=== PATIENT | female | born 1995 | race African-American/Black ===

== ENCOUNTER 2020-03-07 13:52 | Inpatient (IN) | payer OTHER ==
[2020-03-07] MEDS ORDERED: morphine CARPU-JECT 2 MG/1 ML DISP.SYRIN IVPUSH ONE (14:32)
[2020-03-07] MEDS ORDERED: MORPHINE SULFATE 2 MG/ML VIAL ONE ×2 (14:45→17:31)
[2020-03-07] MEDS ORDERED: morphine SULFATE 4 MG/ML VIAL ONE ×2 (14:45→17:31)
[2020-03-07 15:16] LABS: HEMATOCRIT 27.7 % (32.4-45.2); HEMOGLOBIN 9.5 GM/dL (10.7-15.3); MCH 38.6 pg (25.7-33.7); MCHC 34.3 g/dl (32.0-36.0); MEAN CELL VOLUME 112.7 fl (80-96); MEAN PLT VOLUME 9.8 fl (7.5-11.1); PLATELET COUNT 298 K/MM3 (134-434); RBC 2.45 M/mm3 (3.60-5.2); RDW 15.3 % (11.6-15.6); WHITE BLOOD COUNT 9.3 K/mm3 (4.0-10.0)
[2020-03-07 15:27] LABS: RETICULOCYTES 6.36 % (0.5-1.5)
[2020-03-07] MEDS ORDERED: LACTATED RINGERS SOLUTION 1,000 ML/1,000 ML INFUS.BAG IV STA (15:34)
[2020-03-07 15:42] LABS: CHLORIDE 110 mmol/L (98-107); POTASSIUM 4.3 mmol/L (3.5-5.1); SODIUM 138 mmol/L (136-145)
[2020-03-07 15:45] LABS: ALBUMIN 4.1 g/dl (3.4-5.0); ANION GAP 6 MMOL/L (8-16); BLOOD UREA NITROGEN 4.8 mg/dL (7-18); CO2 22 mmol/L (21-32); GLUCOSE,RANDOM 96 mg/dL (74-106)
[2020-03-07 15:47] LABS: CREATININE 0.6 mg/dL (0.55-1.3); SGOT/AST 61 U/L (15-37); SGPT/ALT 82 U/L (13-61)
[2020-03-07 15:50] LABS: BILIRUBIN,TOTAL 1.7 mg/dL (0.2-1); TOT PROT 7.3 g/dl (6.4-8.2)
[2020-03-07 15:51] LABS: ALK PHOS 121 U/L (45-117)
[2020-03-07] MEDS ORDERED: ACETAMINOPHEN 1000 MG/100 ML VIAL (NON FORMULARY) IVPB ONE (15:58)
[2020-03-07] MEDS ORDERED: ACETAMINOPHEN INJECTION 100 ML IVPB ONE (15:59)
[2020-03-07 16:39] LABS: ERYTHROCYTE SEDIMENTATION RATE 4 mm/hr (0-20)
[2020-03-07] MEDS ORDERED: morphine CARPU-JECT 4 MG/1 ML DISP.SYRIN IVPUSH ONE (17:28)
[2020-03-07] MEDS ORDERED: FOLIC ACID 1 MG TABLET (FP) PO ONE (18:34)
[2020-03-07] MEDS ORDERED: LACTATED RINGERS SOLUTION 1,000 ML/1,000 ML INFUS.BAG IV SCH (18:45)
[2020-03-07] MEDS ORDERED: CYANOCOBALAMIN (VITAMIN B-12) 100 MCG TABLET PO SCH (18:45)
[2020-03-07] MEDS ORDERED: FOLIC ACID 1 MG TABLET (FP) ONE (19:32)
[2020-03-07 20:53] VITALS: BMI 18.8
[2020-03-07] MEDS ORDERED: MORPHINE SULFATE 2 MG/ML VIAL IVPUSH ONE (21:15)
[2020-03-07] MEDS: LACTATED RINGERS SOLUTION 1,000 ML/1,000 ML INFUS.BAG IV SCH (21:52)
[2020-03-07] MEDS ORDERED: risperiDONE 1 MG TABLET PO SCH (22:00)
[2020-03-07] MEDS ORDERED: risperiDONE 2 MG TABLET PO SCH (22:00)
[2020-03-07] MEDS: HYDROXYUREA 500 MG CAPSULE PO SCH (23:01)
[2020-03-08] MEDS: morphine SULFATE 4 MG/ML VIAL IVPUSH PRN ×4 (00:07→23:22)
[2020-03-08] MEDS ORDERED: ACETAMINOPHEN 1000 MG/100 ML VIAL (NON FORMULARY) IVPB ONE (03:33)
[2020-03-08] MEDS: LACTATED RINGERS SOLUTION 1,000 ML/1,000 ML INFUS.BAG IV SCH ×3 (03:57→22:36)
[2020-03-08] MEDS ORDERED: PT OWN MED DRAWER 7, Y5N ONE (08:56)
[2020-03-08] MEDS ORDERED: FLU VACCINE (FLULAVAL) PF 60 MCG/0.5 ML SYRINGE 2020-2021 IM ONE (09:00)
[2020-03-08] MEDS: METHADONE HCL 10 MG TABLET PO SCH ×2 (10:08→21:17)
[2020-03-08] MEDS: CYANOCOBALAMIN 1,000 MCG TABLET (FP) PO SCH (10:09)
[2020-03-08] MEDS: FOLIC ACID 1 MG TABLET (FP) PO SCH (10:09)
[2020-03-08] MEDS: ENOXAPARIN NA (PORCINE) 40 MG/0.4 ML DISP.SYRIN SQ SCH (10:12)
[2020-03-08] MEDS: HYDROXYUREA 500 MG CAPSULE PO SCH ×3 (10:39→21:18)
[2020-03-08] MEDS: NICOTINE 7 MG/24 HOURS TOPICAL PATCH TD SCH (10:39)
[2020-03-08] MEDS: oxyCODONE HCL 5 MG TABLET PO PRN ×2 (12:16→20:05)
[2020-03-08] MEDS ORDERED: PATIENT'S OWN MEDICATION (NON-FORMULARY) (Oxycodone Hcl [Oxycodone Hcl] 10 MG Tablet) PO SCH (14:00)
[2020-03-09] MEDS: HYDROXYUREA 500 MG CAPSULE PO SCH ×3 (05:28→22:45)
[2020-03-09] MEDS: oxyCODONE HCL 5 MG TABLET PO PRN ×3 (05:40→20:13)
[2020-03-09 09:40] LABS: BASO % 1.2 % (0-2.0); EOS % 4.5 % (0-4.5); HEMATOCRIT 25.5 % (32.4-45.2); HEMOGLOBIN 8.8 GM/dL (10.7-15.3); LYMPH % 17.7 % (8-40); MCH 39.3 pg (25.7-33.7); MCHC 34.7 g/dl (32.0-36.0); MEAN CELL VOLUME 113.5 fl (80-96); MEAN PLT VOLUME 10.2 fl (7.5-11.1); MONO % 17.9 % (3.8-10.2); NEUT % 58.7 % (42.8-82.8); PLATELET COUNT 274 K/MM3 (134-434); RBC 2.25 M/mm3 (3.60-5.2); RDW 16.1 % (11.6-15.6); WHITE BLOOD COUNT 13.1 K/mm3 (4.0-10.0)
[2020-03-09] MEDS ORDERED: DEXTROSE 5%-WATER - 50 ML IVPB ONE (09:48)
[2020-03-09] MEDS ORDERED: cefTRIAXone SODIUM 1 GM VIAL ONE (09:48)
[2020-03-09] MEDS: ENOXAPARIN NA (PORCINE) 40 MG/0.4 ML DISP.SYRIN SQ SCH (09:53)
[2020-03-09] MEDS: CYANOCOBALAMIN 1,000 MCG TABLET (FP) PO SCH (09:53)
[2020-03-09 09:54] LABS: POTASSIUM 3.8 mmol/L (3.5-5.1)
[2020-03-09] MEDS: morphine SULFATE 4 MG/ML VIAL IVPUSH PRN ×3 (09:54→22:45)
[2020-03-09 09:56] LABS: ALBUMIN 3.5 g/dl (3.4-5.0); BLOOD UREA NITROGEN 3.9 mg/dL (7-18); CALCIUM 8.8 mg/dL (8.5-10.1)
[2020-03-09] MEDS: FOLIC ACID 1 MG TABLET (FP) PO SCH (09:57)
[2020-03-09] MEDS: METHADONE HCL 10 MG TABLET PO SCH ×2 (09:58→22:44)
[2020-03-09] MEDS: NICOTINE 7 MG/24 HOURS TOPICAL PATCH TD SCH (09:59)
[2020-03-09 10:00] LABS: CREATININE 0.5 mg/dL (0.55-1.3)
[2020-03-09] MEDS: CEFTRIAXONE 1 GM in DEXTROSE 5%-WATER - 50 ML IVPB SCH (10:00)
[2020-03-09 10:01] LABS: TOT PROT 6.5 g/dl (6.4-8.2)
[2020-03-09] MEDS: AZITHROMYCIN IVPB 500 MG/250 ML BAG IVPB SCH (10:02)
[2020-03-09 10:04] LABS: MAGNESIUM 1.8 mg/dL (1.8-2.4)
[2020-03-09 11:09] LABS: ANISOCYTOSIS 1+; MACROCYTOSIS 2+; PLATELET ESTIMATE NORMAL; SICKELED CELLS 2+; TARGET CELLS 2+
[2020-03-09] MEDS: LACTATED RINGERS SOLUTION 1,000 ML/1,000 ML INFUS.BAG IV SCH ×2 (14:11→22:51)
[2020-03-10] MEDS: oxyCODONE HCL 5 MG TABLET PO PRN ×2 (02:13→08:21)
[2020-03-10] MEDS: HYDROXYUREA 500 MG CAPSULE PO SCH ×2 (05:34→14:56)
[2020-03-10] MEDS: morphine SULFATE 4 MG/ML VIAL IVPUSH PRN ×2 (05:34→12:41)
[2020-03-10] MEDS: LACTATED RINGERS SOLUTION 1,000 ML/1,000 ML INFUS.BAG IV SCH (07:03)
[2020-03-10 07:59] LABS: POTASSIUM 3.8 mmol/L (3.5-5.1)
[2020-03-10 08:08] LABS: ALBUMIN 3.1 g/dl (3.4-5.0); BLOOD UREA NITROGEN 3.3 mg/dL (7-18); CALCIUM 8.3 mg/dL (8.5-10.1)
[2020-03-10 08:09] LABS: MAGNESIUM 1.9 mg/dL (1.8-2.4)
[2020-03-10 08:10] LABS: BILIRUBIN,TOTAL 1.6 mg/dL (0.2-1)
[2020-03-10 08:12] LABS: CREATININE 0.5 mg/dL (0.55-1.3)
[2020-03-10 08:14] LABS: EOS % 5.4 % (0-4.5); HEMATOCRIT 22.3 % (32.4-45.2); HEMOGLOBIN 7.6 GM/dL (10.7-15.3); LYMPH % 20.7 % (8-40); MCH 38.6 pg (25.7-33.7); MEAN CELL VOLUME 113.6 fl (80-96); MEAN PLT VOLUME 10.5 fl (7.5-11.1); MONO % 17.4 % (3.8-10.2); NEUT % 55.5 % (42.8-82.8); PLATELET COUNT 260 K/MM3 (134-434); RBC 1.96 M/mm3 (3.60-5.2); RDW 15.8 % (11.6-15.6); WHITE BLOOD COUNT 11.3 K/mm3 (4.0-10.0)
[2020-03-10] MEDS ORDERED: cefTRIAXone SODIUM 1 GM VIAL ONE (08:58)
[2020-03-10] MEDS ORDERED: DEXTROSE 5%-WATER - 50 ML IVPB ONE (08:59)
[2020-03-10] MEDS: CEFTRIAXONE 1 GM in DEXTROSE 5%-WATER - 50 ML IVPB SCH (09:00)
[2020-03-10] MEDS: CYANOCOBALAMIN 1,000 MCG TABLET (FP) PO SCH (09:03)
[2020-03-10] MEDS: METHADONE HCL 10 MG TABLET PO SCH (09:03)
[2020-03-10] MEDS: FOLIC ACID 1 MG TABLET (FP) PO SCH (09:03)
[2020-03-10] MEDS: ENOXAPARIN NA (PORCINE) 40 MG/0.4 ML DISP.SYRIN SQ SCH (09:04)
[2020-03-10] MEDS: NICOTINE 7 MG/24 HOURS TOPICAL PATCH TD SCH (09:04)
[2020-03-10] MEDS: AZITHROMYCIN IVPB 500 MG/250 ML BAG IVPB SCH (09:05)
[2020-03-10] MEDS ORDERED: POLYETHYLENE GLYCOL 3350 119 GM BTL PO SCH (11:45)
[2020-03-10 14:23] VITALS: BP 126/80; PULSE 88; TEMP 98
[2020-03-10] MEDS ORDERED: DOCUSATE SODIUM 100 MG CAPSULE (FP) PO SCH (22:00)
[2020-03-10] MEDS ORDERED: SENNOSIDES 8.6MG TABLET (FP) PO SCH (22:00)
== END 2020-03-10 15:24 | disposition home or self-care (01) | DRG 662 ==
LOC: JER 13:52 → JERBED 19:06 → J7W 20:16
PROVIDERS: ATTEND Nurse Practitioner Acute Care
DX: D57.01 Hb-SS disease with acute chest syndrome (principal); J18.9 Pneumonia, unspecified organism; R10.9 Unspecified abdominal pain; D72.89 Other specified disorders of white blood cells; K59.00 Constipation, unspecified; F11.20 Opioid dependence, uncomplicated; F05 Delirium due to known physiological condition; R07.89 Other chest pain; M54.9 Dorsalgia, unspecified; F39 Unspecified mood [affective] disorder; R05 Cough; Z03.818 Encounter for observation for suspected exposure to other biological agents ruled out; Z90.49 Acquired absence of other specified parts of digestive tract; D72.829 Elevated white blood cell count, unspecified
CPT/HCPCS: 36415; 71046-TC-FY; 71250-TC; 76705-TC; 80053; 80074; 83735; 84484; 85025; 85027; 85045; 85651; 86140; 93005; 93010; 94010; 99285-25; C9803; G0008; J0131; J2794; J8999; Q2036; U0003

== ENCOUNTER 2023-10-08 03:10 | Emergency (ER) | payer OTHER ==
[2023-10-08 03:26] VITALS: BMI 17.4
[2023-10-08] MEDS ORDERED: MORPHINE SULFATE 2 MG/ML SYRINGE ONE ×2 (04:30→07:49)
[2023-10-08] MEDS ORDERED: ONDANSETRON 4 MG/2 ML VIAL ONE (04:32)
[2023-10-08] MEDS ORDERED: ACETAMINOPHEN INJECTION 100 ML IVPB ONE (04:32)
[2023-10-08] MEDS: ACETAMINOPHEN 1000 MG/100 ML BAG IVPB ONE (04:41)
[2023-10-08] MEDS: morphine CARPU-JECT 4 MG/1 ML DISP.SYRIN IVPUSH ONE ×3 (04:41→08:00)
[2023-10-08] MEDS: ONDANSETRON 4 MG/2 ML VIAL IVPUSH ONE (04:41)
[2023-10-08 04:54] LABS: BASO % 1.2 % (0-2.0); EOS % 1.9 % (0-4.5); HEMATOCRIT 25.6 % (32.4-45.2); HEMOGLOBIN 8.9 GM/dL (10.7-15.3); LYMPH % 26.9 % (8-40); MCH 39.3 pg (25.7-33.7); MCHC 34.7 g/dl (32.0-36.0); MEAN CELL VOLUME 113.5 fl (80-96); MEAN PLT VOLUME 9.2 fl (7.5-11.1); PLATELET COUNT 248 10^3/uL (134-434); RBC 2.26 M/mm3 (3.60-5.2); RDW 16.6 % (11.6-15.6); RETICULOCYTES 6.86 % (0.5-1.5); WHITE BLOOD COUNT 9.5 K/mm3 (4.0-10.0)
[2023-10-08 05:28] LABS: POTASSIUM 3.8 mmol/L (3.5-5.1)
[2023-10-08 05:30] LABS: ALBUMIN 4.3 g/dl (3.4-5.0); BLOOD UREA NITROGEN 5.8 mg/dL (7-18); CALCIUM 8.6 mg/dL (8.5-10.1)
[2023-10-08 05:33] LABS: CREATININE 0.7 mg/dL (0.55-1.3)
[2023-10-08 05:35] LABS: BILIRUBIN,TOTAL 1.4 mg/dL (0.2-1); TOT PROT 7.2 g/dl (6.4-8.2)
[2023-10-08] MEDS ORDERED: morphine SULFATE 4 MG/ML VIAL ONE ×2 (06:04→07:49)
[2023-10-08 06:21] LABS: ANISOCYTOSIS 2+; MACROCYTOSIS 2+; OVALOCYTE 1+; TARGET CELLS 2+
[2023-10-08] MEDS: SODIUM CHLORIDE 0.9% 500 ML INFUS.BAG IV ONE (08:00)
[2023-10-08 08:01] VITALS: RESP 18
[2023-10-08 09:38] LABS: URINE APPEARANCE CLEAR; URINE BILIRUBIN NEGATIVE (NEGATIVE); URINE COLOR YELLOW; URINE GLUCOSE (UA) NEGATIVE (NEGATIVE); URINE KETONE NEGATIVE (NEGATIVE); URINE LEUK ESTERASE NEGATIVE (NEGATIVE); URINE NITRITE NEGATIVE (NEGATIVE); URINE PROTEIN NEGATIVE (NEGATIVE)
[2023-10-08 10:36] VITALS: BP 103/67; PULSE 85; TEMP 98.4
== END 2023-10-08 10:39 | disposition home or self-care (01) ==
LOC: JER 03:10
PROC: 3E033NZ Introduction of Analgesics, Hypnotics, Sedatives into Peripheral Vein, Percutaneous Approach (ICD-10-PCS; principal; 2023-10-08)
PROC: 3E033NZ Introduction of Analgesics, Hypnotics, Sedatives into Peripheral Vein, Percutaneous Approach (ICD-10-PCS; 2023-10-08)
PROC: 3E033GC Introduction of Other Therapeutic Substance into Peripheral Vein, Percutaneous Approach (ICD-10-PCS; 2023-10-08)
PROC: 3E033NZ Introduction of Analgesics, Hypnotics, Sedatives into Peripheral Vein, Percutaneous Approach (ICD-10-PCS; 2023-10-08)
PROC: 3E033NZ Introduction of Analgesics, Hypnotics, Sedatives into Peripheral Vein, Percutaneous Approach (ICD-10-PCS; 2023-10-08)
DX: D57.00 Hb-SS disease with crisis, unspecified (principal); R07.89 Other chest pain; R11.0 Nausea; R19.7 Diarrhea, unspecified; M54.9 Dorsalgia, unspecified; M79.604 Pain in right leg; M79.605 Pain in left leg
CPT/HCPCS: 36415; 71046-TC-FY; 80053; 81003; 83615; 84703; 85025; 85045; 86850; 86900; 86901; 87086; 93005; 93010; 99285-25; J0131

== ENCOUNTER 2023-12-12 08:56 | Emergency (ER) | payer OTHER ==
[2023-12-12 09:46] VITALS: BP 103/62; PULSE 88; RESP 18; TEMP 98.4; BMI 17.4
[2023-12-12 10:05] LABS: HEMATOCRIT 23.2 % (32.4-45.2); HEMOGLOBIN 8.3 GM/dL (10.7-15.3); MCH 39.4 pg (25.7-33.7); MCHC 35.5 g/dl (32.0-36.0); MEAN CELL VOLUME 110.9 fl (80-96); PLATELET COUNT 251 10^3/uL (134-434); RBC 2.09 M/mm3 (3.60-5.2)
[2023-12-12 10:11] LABS: INR 1.02 (0.83-1.09); PROTHROMBIN TIME (PATIENT) 11.7 SEC (9.7-13.0)
[2023-12-12] MEDS ORDERED: oxyCODONE HCL 10 MG SUSTAINED ACTING TABLET ONE (10:13)
[2023-12-12 10:14] LABS: ACTIVATED PTT 30.3 SECONDS (25.2-36.5)
[2023-12-12] MEDS ORDERED: ONDANSETRON 4 MG/2 ML VIAL ONE (10:14)
[2023-12-12] MEDS ORDERED: methaDONE HCL 10 MG TABLET ONE (10:14)
[2023-12-12] MEDS: oxyCODONE HCL 5 MG TABLET PO ONE (10:26)
[2023-12-12] MEDS: methaDONE HCL 10 MG TABLET PO ONE (10:26)
[2023-12-12] MEDS: LACTATED RINGERS SOLUTION 1000 ML INFUS.BAG IV ONE (10:27)
[2023-12-12] MEDS: ONDANSETRON 4 MG/2 ML VIAL IVPUSH ONE (10:28)
[2023-12-12 10:29] LABS: ALBUMIN 4.1 g/dl (3.4-5.0); BLOOD UREA NITROGEN 7.5 mg/dL (7-18); CALCIUM 9.2 mg/dL (8.5-10.1); MAGNESIUM 2.2 mg/dL (1.8-2.4)
[2023-12-12 10:32] LABS: CREATININE 0.5 mg/dL (0.55-1.3)
[2023-12-12 10:34] LABS: BILIRUBIN,TOTAL 2.5 mg/dL (0.2-1); TOT PROT 6.9 g/dl (6.4-8.2)
[2023-12-12 11:01] LABS: ANISOCYTOSIS 0; MACROCYTOSIS 0; SICKELED CELLS 2+
[2023-12-12] MEDS ORDERED: morphine SULFATE 4 MG/ML VIAL ONE ×2 (11:08→13:39)
[2023-12-12] MEDS: morphine CARPU-JECT 4 MG/1 ML DISP.SYRIN IVPUSH ONE ×2 (11:18→13:46)
[2023-12-12 11:30] LABS: URINE APPEARANCE CLEAR; URINE BILIRUBIN NEGATIVE (NEGATIVE); URINE COLOR YELLOW; URINE GLUCOSE (UA) NEGATIVE (NEGATIVE); URINE KETONE 2+ (NEGATIVE); URINE LEUK ESTERASE NEGATIVE (NEGATIVE); URINE NITRITE NEGATIVE (NEGATIVE); URINE PROTEIN NEGATIVE (NEGATIVE)
[2023-12-12 11:33] LABS: HCG,QUALITATIVE URINE Negative
[2023-12-12] MEDS ORDERED: MORPHINE SULFATE 2 MG/ML SYRINGE ONE (12:23)
[2023-12-12] MEDS: morphine CARPU-JECT 2 MG/1 ML DISP.SYRIN IVPUSH ONE (12:27)
[2023-12-12] MEDS ORDERED: LIDOCAINE 5% TOPICAL PATCH ONE (13:40)
[2023-12-12] MEDS: LIDOCAINE 4% PATCH TP ONE (13:45)
[2023-12-12] MEDS ORDERED: LIDOCAINE PATCH REMOVAL MC SCH (22:00)
== END 2023-12-12 15:15 | disposition home or self-care (01) ==
LOC: JER 08:56
PROC: 3E033NZ Introduction of Analgesics, Hypnotics, Sedatives into Peripheral Vein, Percutaneous Approach (ICD-10-PCS; principal; 2023-12-12)
PROC: 3E033NZ Introduction of Analgesics, Hypnotics, Sedatives into Peripheral Vein, Percutaneous Approach (ICD-10-PCS; 2023-12-12)
PROC: 3E033NZ Introduction of Analgesics, Hypnotics, Sedatives into Peripheral Vein, Percutaneous Approach (ICD-10-PCS; 2023-12-12)
PROC: 3E033GC Introduction of Other Therapeutic Substance into Peripheral Vein, Percutaneous Approach (ICD-10-PCS; 2023-12-12)
DX: D57.219 Sickle-cell/Hb-C disease with crisis, unspecified (principal); M25.511 Pain in right shoulder; M25.512 Pain in left shoulder; M79.661 Pain in right lower leg; M79.662 Pain in left lower leg; M79.10 Myalgia, unspecified site; J02.9 Acute pharyngitis, unspecified; R09.81 Nasal congestion; R68.83 Chills (without fever); Z20.822 Contact with and (suspected) exposure to COVID-19
CPT/HCPCS: 0241U-QW; 36415; 71045-TC-FY; 80053; 81003; 83735; 84703; 85025; 85610; 85730; 87086; 93005; 93010; 99285-25

== ENCOUNTER 2024-02-26 17:04 | Emergency (ER) | payer OTHER ==
[2024-02-26 17:21] VITALS: BMI 17.4
[2024-02-26 18:34] LABS: BASO % 1.1 % (0-2.0); EOS % 1.8 % (0-4.5); HEMATOCRIT 24.8 % (32.4-45.2); HEMOGLOBIN 8.7 GM/dL (10.7-15.3); LYMPH % 12.1 % (8-40); MCH 39.1 pg (25.7-33.7); MCHC 35.2 g/dl (32.0-36.0); MEAN CELL VOLUME 110.9 fl (80-96); MEAN PLT VOLUME 9.5 fl (7.5-11.1); PLATELET COUNT 290 10^3/uL (134-434); RBC 2.24 M/mm3 (3.60-5.2); RDW 17.7 % (11.6-15.6); WHITE BLOOD COUNT 10.8 K/mm3 (4.0-10.0)
[2024-02-26 18:48] LABS: EPI CELLS 18 /uL (0-25.1); HYALINE CASTS 0 /uL (0-3.1); URINE APPEARANCE CLEAR; URINE BACTERIA 71 /uL (0-1359); URINE BILIRUBIN NEGATIVE (NEGATIVE); URINE COLOR YELLOW; URINE GLUCOSE (UA) NEGATIVE (NEGATIVE); URINE KETONE NEGATIVE (NEGATIVE); URINE LEUK ESTERASE NEGATIVE (NEGATIVE); URINE NITRITE NEGATIVE (NEGATIVE); URINE PROTEIN TRACE (NEGATIVE); URINE RBC 5 /uL (0-23.9); URINE WBC 10 /uL (0-25.8)
[2024-02-26 18:51] LABS: POTASSIUM 4.7 mmol/L (3.5-5.1)
[2024-02-26 18:52] LABS: CALCIUM 8.6 mg/dL (8.5-10.1)
[2024-02-26 18:53] LABS: BLOOD UREA NITROGEN 11.8 mg/dL (7-18)
[2024-02-26 19:17] LABS: ANISOCYTOSIS 2+; MACROCYTOSIS 2+; OVALOCYTE 1+
[2024-02-26 19:28] VITALS: BP 110/78; PULSE 76; RESP 19; TEMP 97.9
[2024-02-26 19:47] LABS: HIV INTERPRETATION NEGATIVE (NEGATIVE)
== END 2024-02-26 19:28 | disposition home or self-care (01) ==
LOC: JER 17:04
DX: R19.7 Diarrhea, unspecified (principal); R10.30 Lower abdominal pain, unspecified
CPT/HCPCS: 36415; 80053; 81003; 83605; 84703; 85025; 86803; 87389; 99283-25